=== PATIENT | male | born 1960 | race Caucasian/White ===

== ENCOUNTER 2024-04-17 16:34 | Inpatient (IN) | payer MEDICARE, MEDICAID, SELFPAY ==
[2024-04-17] VITALS (8 sets, daily range): BP systolic 105–154; BP diastolic 66–82; PULSE 80–100; RESP 12–18; TEMP 36–36.8; O2SAT 93–99; BMI 27.1; BMI 30.9; BMI 30.6
--- NOTE | 2024-04-17 17:19 | EX.ED.DYSGE1 ---
HPI <DENISSE Payne - Last Filed: 04/17/24 18:28> History of Present Illness Chief Complaint: Substance Abuse Narrative Narrative: Patient is a 64-year-old male with history of hypertension, hyperlipidemia, atrial fibrillation on Eliquis who presents to the emergency department for detox. Patient states that he snorts fentanyl every morning and every evening. He states that he has been addicted to opiates, narcotics for the last 25 years. He was in a methadone program however stopped in December 2023. Started doing fentanyl again in January. Patient states he takes it because he have severe bilateral hand pain. 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 Patient's sister has it, patient also has hands with muscle wasting as well. He is here for evaluation. [facility] <DENISSE Payne - Last Filed: 04/17/24 18:28> [facility] Medical History (Updated 04/18/24 @ 00:[address] Eliud Lafleur MD) Atrial fibrillation BPH (benign prostatic hyperplasia) Tobacco abuse Gout Peripheral vascular disease Benzodiazepine abuse Heart failure with preserved ejection fraction Mild fentanyl abuse Home Medications ?Medication ?Instructions ?Recorded ?Last Taken ?Type albuterol sulfate 90 mcg/actuation 2 puff inhalation Q6H PRN PRN 04/17/24 Unknown History aerosol inhaler dyspnea apixaban 5 mg tablet (Eliquis) 5 mg PO Q12.TCU 04/17/24 Unknown History atorvastatin 40 mg tablet 40 mg PO DAILY 04/17/24 Unknown History diclofenac sodium 1 % topical gel 2 ea topical 4X/DAY 04/17/24 Unknown History dicyclomine 20 mg tablet 20 mg PO Q6H PRN 04/17/24 Unknown History fluticasone furoate 100 1 ea inhalation BID 04/17/24 Unknown History mcg-vilanterol 25 mcg/dose inhalation powder (Breo Ellipta) furosemide 20 mg tablet 20 mg PO DAILY 04/17/24 Unknown History gabapentin 100 mg capsule 100 mg PO TID 04/17/24 Unknown History metoprolol tartrate 50 mg tablet 50 mg PO BID 04/17/24 Unknown History promethazine 25 mg tablet 25 mg PO Q6H PRN PRN 04/17/24 Unknown History nausea/vomiting quetiapine 100 mg tablet 100 mg PO BID 04/17/24 Unknown History tamsulosin 0.4 mg capsule 0.4 mg PO DAILY 04/17/24 Unknown History Allergy/AdvReac Type Severity Reaction Status Date / Time vancomycin Allergy Intermediate Swelling Verified 04/17/24 16:37 Surgical History Amputated left leg Social History Smoking Status: Current every day smoker tobacco type: cigarettes ROS <DENISSE Payne - Last Filed: 04/17/24 18:28> ROS ED ROS Narrative Constitutional: Negative for fever, chills, weight loss, weakness Eyes: Negative for vision loss, vision change, double vision ENT: Negative for any sore throat, ear pain, congestion Cardiovascular: Negative for any chest pain, tightness, palpitations Respiratory: Negative for any cough, sputum production, hemoptysis, dyspnea, dyspnea on exertion, orthopnea Gastrointestinal: Negative for any abdominal pain, nausea, vomiting, diarrhea, constipation, blood in stool, blood in vomit : Negative for any urinary frequency, dysuria, retention, blood in urine Muscle skeletal: Negative for any neck pain, back pain. Positive for bilateral hand pain Neurological: Negative for any headache, syncope, dizziness Skin: Negative for any rashes, itching, abrasions, lacerations Psychiatric: Negative for any depression, suicidal ideation, homicidal ideation. Positive for anxiety, stress Hematologic: Negative for any excessive bruising, easy bleeding EXAM <DENISSE Payne - Last Filed: 04/17/24 18:28> Physical Exam Narrative Exam Narrative: Vital signs reviewed. HEET: Head normocephalic atraumatic, TMs clear bilaterally. Posterior pharynx is clear, moist mucous membranes. Nares clear bilaterally. Neck: Supple with no lymphadenopathy or tenderness. No signs of meningismus. Cardiac: Regular rate and rhythm no murmurs gallops or rubs, equal peripheral pulses bilaterally. Respiratory: Patient does have some expiratory wheezing. No chest tenderness. Abdomen: Soft, nontender, nondistended. No abdominal bruit or pulsatile masses. No hepatosplenomegaly Extremities: No peripheral edema, no signs of gross trauma or deformity. Active full range of motion of all extremities. Patient's bilateral hands do look to have CMT, there is muscle wasting in between the first and second digit. Neuro: Cranial nerves II through XII intact, no focal neurological deficits. Skin: Clean dry and intact with no rash, purpura, petechiae, vesicles or pustules. Backs/flank: No CVA tenderness, no midline spinal tenderness, no deformity. Psych: Normal mood and affect. No SI, HI or acute psychosis. Const Vital Signs: 04/17/24 16:37 Temperature 96.8 F L Temperature Source Temporal Pulse Rate 100 Respiratory Rate 18 Blood Pressure 154/82 H Blood Pressure Mean 106 Pulse Ox 97 Oxygen Delivery Method Room Air Positive well nourished and well developed General Appearance ED: well developed <Dr. Eliud Lafleur MD - Last Filed: 04/18/24 00:21> Physical Exam Const Vital Signs: 04/17/24 16:37 Temperature 96.8 F L Temperature Source Temporal Pulse Rate 100 Respiratory Rate 18 Blood Pressure 154/82 H Blood Pressure Mean 106 Pulse Ox 97 Oxygen Delivery Method Room Air MDM <DENISSE Payne - Last Filed: 04/17/24 18:28> MDM Lab Data Labs: Laboratory Results - last 24 hr 04/17/24 04/17/24 17:15 18:15 WBC 15.4 H RBC 5.10 Hgb 14.9 Hct 44.6 MCV 87.5 MCH 29.2 MCHC 33.4 RDW Std Deviation 42.5 RDW Coeff of Allyn 13.2 Plt Count 241 MPV 9.6 Immature Gran % (Auto) 0.500 Neut % (Auto) 80.8 H Lymph % (Auto) 14.4 L [place] % (Auto) 4.0 Eos % (Auto) 0.1 Baso % (Auto) 0.2 Absolute Neuts (auto) 12.5 H Absolute Lymphs (auto) 2.23 Nucleated RBC % 0 Sodium 139 Potassium 4.0 Chloride 108 H Carbon Dioxide 25.0 Anion Gap 6 BUN 16 Creatinine 0.91 Estim Creat Clear Calc 102.08 Est GFR (MDRD) Af Amer 108 Est GFR (MDRD) Non-Af 90 BUN/Creatinine Ratio 17.7 Glucose 128 H Calcium 8.5 Urine Opiates Screen NEGATIVE Urine Methadone Screen NEGATIVE Ur Barbiturates Screen NEGATIVE Ur Phencyclidine Scrn NEGATIVE Ur Amphetamines Screen NEGATIVE MDMA (Ecstasy) Screen NEGATIVE U Benzodiazepines Scrn POSITIVE H Urine Cocaine Screen NEGATIVE U Cannabinoids Screen NEGATIVE Ur Drug Screen Comment Ethyl Alcohol < 3.0 Treatment and Re-Evaluation :: Differential diagnosis includes however is not limited to: Fentanyl abuse, Charcot Lenore tooth syndrome, anxiety, depression, chronic pain, withdrawal Patient appears generally well, vital signs are stable, patient is nontoxic-appearing. Presenting to the emergency department for the 1 of detox from fentanyl, he is also concerned because he has chronic pain to both hands and wants to see a specialist. Patient will receive the basic laboratory values needed for admission. Patient CBC shows slight leukocytosis with white blood count of 15.4, chemistries were unremarkable, glucose 128, alcohol was negative. I did reach out to hospitalist, they will admit the patient. Patient stable. <Dr. Eliud Lafleur MD - Last Filed: 04/18/24 00:21> [facility] MDM Narrative Medical decision making narrative: I have personally performed a face to face assessment of the patient and have reviewed the DEEPALI Note. I performed a substantive portion of the visit including all aspects of the following. My harkins findings include: History is patient states he is here wanting detox from fentanyl. He has chronic pain in both of his hands that he states started in an ulnar nerve distribution bilaterally and now is throughout his palms, including throughout the MCPJ and PIPJ's all digits, hurts more to move. Family history of CMT unknown if he has it or not. The pain has been for years. He used to be in a methadone clinic for this pain, but in this summer he decided to leave it and then was dependent on fentanyl to keep his pain controlled, according to the patient. He sometimes has withdrawal, his last use was yesterday and he does not have any withdrawal symptoms today yet. Exam is well-appearing NAD. Full range of motion throughout both hands which are normal-appearing on the skin. There is no focal swelling or erythema to any particular joint. He is neurovascularly intact distally. He status post left AKA. He has a prosthesis. Medical Decison Making discussed thoroughly with patient that if he goes through detox without having a plan for his pain afterwards, he is at risk for relapse. He wants his hand issues addressed as well. As I discussed we are happy to admit him for detox, we discussed with the hospitalist the issues he is having, and we told the patient that they may consult neurology which is a telemedicine encounter here, and we cannot make him guarantees about solving his hand issues during this admission. He understands and still desires admission. Other additions or changes: [None] Lab Data Labs: Laboratory Results - last 24 hr 04/17/24 04/17/24 17:15 18:15 WBC 15.4 H RBC 5.10 Hgb 14.9 Hct 44.6 MCV 87.5 MCH 29.2 MCHC 33.4 RDW Std Deviation 42.5 RDW Coeff of Allyn 13.2 Plt Count 241 MPV 9.6 Immature Gran % (Auto) 0.500 Neut % (Auto) 80.8 H Lymph % (Auto) 14.4 L [place] % (Auto) 4.0 Eos % (Auto) 0.1 Baso % (Auto) 0.2 Absolute Neuts (auto) 12.5 H Absolute Lymphs (auto) 2.23 Nucleated RBC % 0 Sodium 139 Potassium 4.0 Chloride 108 H Carbon Dioxide 25.0 Anion Gap 6 BUN 16 Creatinine 0.91 Estim Creat Clear Calc 102.08 Est GFR (MDRD) Af Amer 108 Est GFR (MDRD) Non-Af 90 BUN/Creatinine Ratio 17.7 Glucose 128 H Calcium 8.5 Urine Opiates Screen NEGATIVE Urine Methadone Screen NEGATIVE Ur Barbiturates Screen NEGATIVE Ur Phencyclidine Scrn NEGATIVE Ur Amphetamines Screen NEGATIVE MDMA (Ecstasy) Screen NEGATIVE U Benzodiazepines Scrn POSITIVE H Urine Cocaine Screen NEGATIVE U Cannabinoids Screen NEGATIVE Ur Drug Screen Comment Ethyl Alcohol < 3.0 Discharge Plan Dx/Rx/DC Orders Clinical Impression: Opioid dependence with current use, Mild fentanyl abuse, Desire for detoxification, Bilateral hand pain, Chronic pain Disposition Disposition: Acute Care Hospital [facility] Discharge Date/Time: 04/17/24 18:43
[2024-04-17 17:22] LABS: Absolute Lymphocyte Count 2.23 X10^3/uL (0.83-4.51); Absolute Neutrophil Count 12.5 X10^3/uL (2.0-7.7); Basophil# 0.03 X10^3/uL; Basophil% 0.2 % (0-1); Eosinophil# 0.02 X10^3/uL; Eosinophils% 0.1 % (0-5); Hematocrit 44.6 % (40-54); Hemoglobin 14.9 g/dL (13.0-16.5); Lymphocyte # 2.23 X10^3/ul (0.83-4.51); Lymphocyte % 14.4 % (19-41); Mean Corp Hgb Conc 33.4 g/dL (32-36); Mean Corpuscular Hgb 29.2 pg (27.0-32.0); Mean Corpuscular Volume 87.5 fL (80-94); Mean Platelet Vol. 9.6 fl (6.2-12.0); Monocyte# 0.61 X10^3/uL; NRBC Flagged by Analyzer 0 % (0-5); Neutrophil # 12.47 X10^3/uL (2.7-7.7); Neutrophil % 80.8 % (47-70); Platelet Count 241 K/mm3 (150-450); RBC Distribution Width CV 13.2 % (11.6-14.6); RBC Distribution Width SD 42.5 fl (35.1-43.9); White Blood Count 15.4 K/mm3 (4.4-11.0)
[2024-04-17 17:35] LABS: Anion Gap 6 (5-15); BUN 16 mg/dL (7-18); BUN/Creat Ratio 17.7 RATIO (10-20); Calcium,Total 8.5 mg/dL (8.5-10.1); Chloride 108 mmol/L (98-107); Creatinine, Serum 0.91 mg/dL (0.70-1.30); EST Glomerular Filtration Rate 90 mL/min (>60); Est Glom Filt Rate - Afr Amer 108 mL/min (>60); Estimated Creatinine Clearance 102.08 ml/min; Glucose 128 mg/dL (74-106); Sodium Level 139 mmol/L (136-145)
[2024-04-17 17:44] LABS: Alcohol, Blood (Medical)-Serum < 3.0 mg/dL
--- NOTE | 2024-04-17 18:33 | PCM.HP.STD ---
HPI - General General Date of Admission: 04/17/24 Date of Service: 04/17/24 Chief Complaint: Fentanyl detox HPI Narrative BRAYAN GALLAGHER, is a 64 M with a history of peripheral vascular disease status post left lower extremity amputation due to infection, gout, COPD, anxiety, chronic heart failure with preserved ejection fraction, atrial fibrillation, BPH who presented [facility] ED 04/17/2024 requesting detox from fentanyl. In ED patient with white blood cell count of 15.4 however lab workup otherwise unremarkable and patient vitally stable. Only focal complaint was pain in his hands which is not new. Hospitalist contacted for admission. Patient evaluated at bedside. Patient has used narcotics for many years, had been in the methadone clinic for period of time however he was pulled over when driving and was in [place] [facility] and when he was released to the methadone clinic wanted him to go back to daily and that weekly visits so he left the clinic. Since January he has been snorting fentanyl in the morning and at night with last use yesterday. Has not began to withdraw but said he anticipates he will start by tomorrow. Additionally patient uses tobacco and smokes about a pack per day. He also occasionally uses Xanax, somewhat elusive when trying to get the details of this but after a lot of questioning seems that he possibly uses roughly 1 g every other day and unclear when his last dose was. He said he can usually tell if he is withdrawing from it and does not presently feel he is withdrawing but if he is going to he would likely know tomorrow. Has main complaint of bilateral hand pain which is not new and has been dealing with this on an outpatient basis, aside from his pain ROS otherwise negative. Of note we have no records of his so past medical history obtained via patient and [employer] [employer] and his sister brought his bag of medicine and so that his medicine list could be updated. [facility] Medical History (Updated 04/17/24 @ 18:[address] Liz Corona MD) Atrial fibrillation Benzodiazepine abuse BPH (benign prostatic hyperplasia) Gout Heart failure with preserved ejection fraction Mild fentanyl abuse Peripheral vascular disease Tobacco abuse Home Medications ?Medication ?Instructions ?Recorded ?Last Taken ?Type albuterol sulfate 90 mcg/actuation 2 puff inhalation Q6H PRN PRN 04/17/24 Unknown History aerosol inhaler dyspnea apixaban 5 mg tablet (Eliquis) 5 mg PO Q12.TCU 04/17/24 Unknown History atorvastatin 40 mg tablet 40 mg PO DAILY 04/17/24 Unknown History diclofenac sodium 1 % topical gel 2 ea topical 4X/DAY 04/17/24 Unknown History dicyclomine 20 mg tablet 20 mg PO Q6H PRN 04/17/24 Unknown History fluticasone furoate 100 1 ea inhalation BID 04/17/24 Unknown History mcg-vilanterol 25 mcg/dose inhalation powder (Breo Ellipta) furosemide 20 mg tablet 20 mg PO DAILY 04/17/24 Unknown History gabapentin 100 mg capsule 100 mg PO TID 04/17/24 Unknown History metoprolol tartrate 50 mg tablet 50 mg PO BID 04/17/24 Unknown History promethazine 25 mg tablet 25 mg PO Q6H PRN PRN 04/17/24 Unknown History nausea/vomiting quetiapine 100 mg tablet 100 mg PO BID 04/17/24 Unknown History tamsulosin 0.4 mg capsule 0.4 mg PO DAILY 04/17/24 Unknown History Allergy/AdvReac Type Severity Reaction Status Date / Time vancomycin Allergy Intermediate Swelling Verified 04/17/24 16:37 Surgical History (Updated 04/17/24 @ 18:[address] Lzi Corona MD) Amputated left leg Social History Smoking Status: Current every day smoker tobacco type: cigarettes ROS ROS Narrative General: Denies fever/chills HENT: Denies headache, denies stuffy nose, denies sore throat EYES: Denies changes in vision Resp: Denies cough, denies shortness of breath Cardiac: Denies chest pain GI: Denies abdominal pain, denies changes in bowel, denies nausea/vomiting : Denies changes in urination Extremity: Denies swelling MSK: Pain in bilateral hands Neuro: Denies any numbness/tingling Heme: Denies any bleeding or bruising Skin: Denies rashes Psychiatric: No complaints voiced Vital Signs Vital Signs Vital Signs: 04/17/24 16:37 Temperature 96.8 F L Temperature Source Temporal Pulse Rate 100 Respiratory Rate 18 Blood Pressure 154/82 H Blood Pressure Mean 106 Pulse Ox 97 Oxygen Delivery Method Room Air Weight Weight: 103.6 kg Body Mass Index (BMI) 30.9 Physical Exam Narrative General: Alert, oriented, no apparent distress HEENT: Atraumatic, normocephalic Eyes: Anicteric, normal conjunctiva, extraocular movements grossly intact Neck: Supple Respiratory: Clear to auscultation bilaterally, normal respiratory effort Cardiovascular: Regular rate GI: Soft, nontender, nondistended Extremities: Left BKA noted and patient with prosthetic in place, no swelling appreciated on right Musculoskeletal: Moving all extremities, does have left BKA noted Neuro: No overt focal neurological deficits Skin: No rashes appreciated Psych: Overall cooperative but somewhat evasive with questioning Results Lab / Micro Data 04/17/24 17:15 04/17/24 17:15 Labs: Laboratory Results - last 24 hr 04/17/24 17:15: WBC 15.4 H, RBC 5.10, Hgb 14.9, Hct 44.6, MCV 87.5, MCH 29.2, MCHC 33.4, RDW Std Deviation 42.5, RDW Coeff of Allyn 13.2, Plt Count 241, MPV 9.6, Immature Gran % (Auto) 0.500, Neut % (Auto) 80.8 H, Lymph % (Auto) 14.4 L, [place] % (Auto) 4.0, Eos % (Auto) 0.1, Baso % (Auto) 0.2, Absolute Neuts (auto) 12.5 H, Absolute Lymphs (auto) 2.23, Nucleated RBC % 0, Sodium 139, Potassium 4.0, Chloride 108 H, Carbon Dioxide 25.0, Anion Gap 6, BUN 16, Creatinine 0.91, Estim Creat Clear Calc 102.08, Est GFR (MDRD) Af Amer 108, Est GFR (MDRD) Non-Af 90, BUN/Creatinine Ratio 17.7, Glucose 128 H, Calcium 8.5, Ethyl Alcohol < 3.0 04/17/24 18:15: Ur Drug Screen Comment Assessment & Plan Assessment/Plan (1) Mild fentanyl abuse: (2) Desire for detoxification: (3) Benzodiazepine abuse: PLAN: Plan #Acute opiate withdrawal - Subutex taper initiated - As needed Tylenol, ibuprofen, bowel regimen, Bentyl, Vistaril, methocarbamol, clonidine - As needed trazodone nightly - As needed antiemetics -Once patient begins to clinically improve will discuss further discharge planning # Benzodiazepine use disorder -Patient estimates he uses a milligram every other day but very vague and last use unclear, he reports he knows if he is withdrawing from it and he is not presently and does not necessarily think that he will -CIWA with Ativan coverage #Bilateral hand pain -Schedule tylenol -Patient to be on Subutex taper so we will not order opioids -Given heart history, on eliquis, and vascular stenting patient not an ideal candidate for NSAIDs -Can try topical arthritis pain compound as needed -Will need to continue to follow-up outpatient for further management of his chronic pain -Will increase patient's scheduled gabapentin as well # Leukocytosis -Patient has no focal or acute signs and symptoms of acute infectious etiology -Vitally stable -Repeat in the a.m. -Would hold off on empiric antibiotics unless infectious source identified or active infection highly suspected #atrial fibrillation -Continue home metoprolol and Eliquis # Chronic heart failure with preserved ejection fraction -Seen on problem list in clin[facility] -Daily weights, I's and O's -Continue patient's home Lasix # Peripheral vascular disease with stenting and left lower extremity amputation -Patient reports he got an infection in his left lower extremity previously that ultimately required amputation, is also had peripheral vascular intervention per patient -Continue Eliquis and atorvastatin # Chronic COPD -Continue home inhalers #Chronic BPH with obstruction -Continue home medications #Gout -Does not appear to be taking any chronic medications at this time #Tobacco use -Advise cessation -Nicotine patch ordered #DVT ppx: On Eliquis Liz Corona MD Time spent in the patient's overall evaluation,decision-making process, review of diagnostic data, adjustment of management, discussion with other providers, nursing nursing and ancillary staff involved in patient's care documentation, 56 Minutes Charges/Coding Visit Charges Inpatient E&M: 24969 Init Hosp L2
[2024-04-17 18:49] LABS: Amphetamine Urine VISTA NEGATIVE (<1000 ng/mL); Barbiturate Urine VISTA NEGATIVE (< 200 ng/mL); Benzodiazepine Urine VISTA POSITIVE (< 200 ng/mL); Cocaine Urine VISTA NEGATIVE (< 300 ng/mL); Ecstacy Urine VISTA NEGATIVE (< 500 ng/mL); Methadone Urine VISTA NEGATIVE (< 300 ng/mL); PCP Urine VISTA NEGATIVE (< 25 ng/mL); THC Urine VISTA NEGATIVE (< 50 ng/mL); Vista UDS pH Range 5
[2024-04-17] MEDS: Albuterol 2.5 MG/3 ML VIAL.NEB. INHALATION (20:55)
[2024-04-17] MEDS: Budesonide Respules 0.5 MG/2 ML AMPUL.NEB. INHALATION (20:55)
[2024-04-17] MEDS: Gabapentin 100 MG Capsule 200 MG PO (21:13)
[2024-04-17] MEDS: Acetaminophen 500 MG Tablet 1000 MG PO (21:13)
[2024-04-17] MEDS: QUEtiapine 100 MG Tablet PO (21:14)
[2024-04-17] MEDS: APIXABAN 5 MG TABLET PO (21:14)
[2024-04-17] MEDS: Arthritis Pain Compound 60 CLICK TUBE TOPICAL (21:19)
[2024-04-17] MEDS: Metoprolol Tartrate 50 MG Tablet PO (22:25)
[2024-04-17] MEDS: Methocarbamol 750 MG Tablet PO (22:30)
[2024-04-18] VITALS (8 sets, daily range): BP systolic 94–129; BP diastolic 57–63; PULSE 62–98; RESP 16–18; TEMP 36.4–36.7; O2SAT 96–99; BMI 30.6
[2024-04-18] MEDS: Gabapentin 100 MG Capsule 200 MG PO ×2 (05:12→13:08)
[2024-04-18] MEDS: Acetaminophen 500 MG Tablet 1000 MG PO ×3 (05:12→21:13)
[2024-04-18 06:43] LABS: Absolute Lymphocyte Count 3.11 X10^3/uL (0.83-4.51); Absolute Neutrophil Count 6.6 X10^3/uL (2.0-7.7); Basophil# 0.01 X10^3/uL; Basophil% 0.1 % (0-1); Eosinophil# 0.06 X10^3/uL; Eosinophils% 0.6 % (0-5); Lymphocyte # 3.11 X10^3/ul (0.83-4.51); Mean Corp Hgb Conc 32.5 g/dL (32-36); Mean Corpuscular Hgb 28.8 pg (27.0-32.0); Mean Corpuscular Volume 88.5 fL (80-94); Mean Platelet Vol. 9.7 fl (6.2-12.0); Monocyte# 0.55 X10^3/uL; Monocyte% 5.3 % (0-10); NRBC Flagged by Analyzer 0 % (0-5); Neutrophil # 6.58 X10^3/uL (2.7-7.7); Neutrophil % 63.5 % (47-70); Platelet Count 188 K/mm3 (150-450); RBC Distribution Width CV 13.6 % (11.6-14.6); RBC Distribution Width SD 43.6 fl (35.1-43.9); Red Blood Count 4.52 M/mm3 (4.6-6.2); White Blood Count 10.4 K/mm3 (4.4-11.0)
[2024-04-18 07:27] LABS: AST(SGOT) 4 U/L (15-37); Alanine Aminotransfer ALT/SGPT 14 U/L (16-61); Albumin, Serum 2.9 g/dL (3.2-5.0); Alkaline Phosphatase 81 U/L (45-117); Anion Gap 7 (5-15); BUN 14 mg/dL (7-18); BUN/Creat Ratio 17.7 RATIO (10-20); Calcium,Total 7.7 mg/dL (8.5-10.1); Chloride 111 mmol/L (98-107); Creatinine, Serum 0.79 mg/dL (0.70-1.30); EST Glomerular Filtration Rate 105 mL/min (>60); Est Glom Filt Rate - Afr Amer 127 mL/min (>60); Estimated Creatinine Clearance 116.99 ml/min; Globulin 2.9 g/dL (2.2-4.2); Glucose 108 mg/dL (74-106); Magnesium 2.4 mg/dL (1.6-2.6); Potassium 3.6 mmol/L (3.5-5.1); Protein, Total 5.8 g/dL (6.4-8.2); Sodium Level 145 mmol/L (136-145)
[2024-04-18] MEDS: Albuterol 2.5 MG/3 ML VIAL.NEB. INHALATION ×2 (08:00→13:49)
[2024-04-18] MEDS: Budesonide Respules 0.5 MG/2 ML AMPUL.NEB. INHALATION (08:00)
[2024-04-18] MEDS: Methocarbamol 750 MG Tablet PO ×2 (08:41→21:24)
[2024-04-18] MEDS: Arthritis Pain Compound 60 CLICK TUBE TOPICAL (08:41)
[2024-04-18] MEDS: Tamsulosin HCl 0.4 MG Capsule PO (08:43)
[2024-04-18] MEDS: Furosemide 20 MG Tablet PO (08:43)
[2024-04-18] MEDS: Metoprolol Tartrate 50 MG Tablet PO ×2 (08:43→21:13)
[2024-04-18] MEDS: Atorvastatin Calcium 40 MG Tablet PO (08:43)
[2024-04-18] MEDS: APIXABAN 5 MG TABLET PO ×2 (08:43→21:13)
[2024-04-18] MEDS: Buprenorphine HCl 2 MG TAB.SUBL SL ×2 (11:52→19:02)
--- NOTE | 2024-04-18 17:42 | PCM.PN.HOSP ---
Reason for Visit Reason for Visit: Diagnoses Opioid abuse, uncomplicated (04/17/24) Sedative, hypnotic or anxiolytic abuse, uncomplicated (04/17/24) Subjective Subjective Patient was seen and examined today, he does not complain of any muscle pain, nausea, or vomiting. Patient does complain of neuropathic pain in his hands which she has had for many weeks, etiology of this is unknown, I told him I would place him on gabapentin to see if this would help. He has not yet seen a physician for a workup for this discomfort. Objective Data Objective Data Vital Signs: Vital Signs Temp Pulse Resp BP Pulse Ox O2 Del Method 97.5 F L 84 18 98/57 L 96 Room Air 04/18/24 16:47 04/18/24 16:47 04/18/24 16:47 04/18/24 16:47 04/18/24 16:47 04/18/24 16:47 Oxygen Delivery Method Room Air Weight: 102.5 kg Body Mass Index (BMI) 30.6 Intake & Output: Intake and Output for Last 24 Hours 04/16/24 04/17/24 04/18/24 23:59 23:59 23:59 Intake Total 900 / 900 900 / 900 Output Total 1750 / 1750 Balance 900 / 900 -850 / -850 Lab / Micro Data 04/18/24 06:22 04/18/24 06:22 Labs: Laboratory Results - last 24 hr 04/17/24 17:15: Ethyl Alcohol < 3.0 04/17/24 18:15: Urine Opiates Screen NEGATIVE, Urine Methadone Screen NEGATIVE, Ur Barbiturates Screen NEGATIVE, Ur Phencyclidine Scrn NEGATIVE, Ur Amphetamines Screen NEGATIVE, MDMA (Ecstasy) Screen NEGATIVE, U Benzodiazepines Scrn POSITIVE H, Urine Cocaine Screen NEGATIVE, U Cannabinoids Screen NEGATIVE, Ur Drug Screen Comment 04/18/24 06:22: WBC 10.4, RBC 4.52 L, Hgb 13.0, Hct 40.0, MCV 88.5, MCH 28.8, MCHC 32.5, RDW Std Deviation 43.6, RDW Coeff of Allyn 13.6, Plt Count 188, MPV 9.7, Immature Gran % (Auto) 0.500, Neut % (Auto) 63.5, Lymph % (Auto) 30.0, [place] % (Auto) 5.3, Eos % (Auto) 0.6, Baso % (Auto) 0.1, Absolute Neuts (auto) 6.6, Absolute Lymphs (auto) 3.11, Nucleated RBC % 0, Sodium 145, Potassium 3.6, Chloride 111 H, Carbon Dioxide 27.0, Anion Gap 7, BUN 14, Creatinine 0.79, Estim Creat Clear Calc 116.99, Est GFR (MDRD) Af Amer 127, Est GFR (MDRD) Non-Af 105, BUN/Creatinine Ratio 17.7, Glucose 108 H, Calcium 7.7 L, Magnesium 2.4, Total Bilirubin 0.30, AST 4 L, ALT 14 L, Alkaline Phosphatase 81, Total Protein 5.8 L, Albumin 2.9 L, Globulin 2.9, Albumin/Globulin Ratio 1.0 Physical Exam Const alert, oriented x3, no apparent distress and healthy appearing General Appearance: cooperative, well kempt and well developed Orientation / Consciousness: awake, oriented to person, oriented to place and oriented to time HEENT normocephalic and moist oral mucous membranes Eyes PERRL, EOMs intact bilaterally and conjunctivae normal Neck supple, no JVD and thyroid normal General: trachea midline Resp normal respiratory effort, no retractions, no use of accessory muscles and clear to auscultation bilaterally Auscultation: Negative for rales, rhonchi or wheezes Cardio regular rate, regular rhythm, S1 normal heart sound, S2 normal heart sound, no murmurs, no rub and no gallops GI normal to inspection, nondistended, normoactive bowel sounds, soft to palpation, non-tender and non-distended Extremity no clubbing, cyanosis or edema Skin no rashes or lesions noted General Skin Exam: no breakdown Neuro oriented x3, CN's II-XII intact bilaterally, moves all extremities, no focal motor deficits and no sensory deficits noted Sensorium / Orientation: awake and alert Speech: speech normal Psych affect normal Assessment & Plan Assessment/Plan (1) Bilateral hand pain: PLAN: Plan 1. Substance use disorder with fentanyl, currently undergoing withdrawal syndrome-continue Subutex, patient will be seen by addiction social insurance administrator #2 neuropathic hand pain-etiology unclear, patient will be placed on higher doses of gabapentin in an attempt to alleviate his discomfort, patient will need to continue workup as an outpatient #3 hyperlipidemia-patient is on atorvastatin #4 paroxysmal atrial fibrillation-patient is on Eliquis Total clinical time spent by myself addressing the patient's medical issues, reviewing all of his data, and collaborating with patient's care team: 35 minutes Charges/Coding Visit Charges Inpatient E&M: 19660 Subs Hosp L2
--- NOTE | 2024-04-18 18:23 | NURSING ---
Call received from sister Ebony. Updated on status/emotional well-being of pt.
[2024-04-18] MEDS: Gabapentin 400 MG Capsule PO (21:13)
[2024-04-18] MEDS: QUEtiapine 100 MG Tablet PO (21:14)
[2024-04-19] VITALS (8 sets, daily range): BP systolic 98–115; BP diastolic 60–84; PULSE 71–86; RESP 16–18; TEMP 36.7–36.9; O2SAT 95–98; BMI 29.2
[2024-04-19] MEDS: Buprenorphine HCl 2 MG TAB.SUBL SL ×3 (03:23→18:09)
[2024-04-19] MEDS: Acetaminophen 500 MG Tablet 1000 MG PO ×3 (06:25→21:58)
[2024-04-19] MEDS: Gabapentin 400 MG Capsule PO ×3 (06:26→21:58)
[2024-04-19] MEDS: Budesonide Respules 0.5 MG/2 ML AMPUL.NEB. INHALATION (07:36)
[2024-04-19] MEDS: Albuterol 2.5 MG/3 ML VIAL.NEB. INHALATION ×2 (07:36→13:34)
[2024-04-19] MEDS: Metoprolol Tartrate 50 MG Tablet PO ×2 (10:04→21:58)
[2024-04-19] MEDS: APIXABAN 5 MG TABLET PO ×2 (10:05→21:58)
[2024-04-19] MEDS: Atorvastatin Calcium 40 MG Tablet PO (10:05)
[2024-04-19] MEDS: Furosemide 20 MG Tablet PO (10:05)
[2024-04-19] MEDS: Tamsulosin HCl 0.4 MG Capsule PO (10:05)
--- NOTE | 2024-04-19 10:50 | ADDICTION ---
Met with pt to complete RAMP assessments. Pt reports that he began abusing fentanyl and other pain medications. Pt reports that he was on Methadone for a couple of years but detoxed in long term. Pt reports he has court on and cannot commit to any treatment recommendations at this time. Clinician gave him a list of resources in his area.
[2024-04-19] MEDS: Methocarbamol 750 MG Tablet PO ×2 (13:57→20:21)
--- NOTE | 2024-04-19 14:48 | PN.HOSP_ITS ---
Reason for Visit Reason for Visit: Diagnoses Opioid abuse, uncomplicated (04/17/24) Sedative, hypnotic or anxiolytic abuse, uncomplicated (04/17/24) Pain in right hand (04/17/24) Pain in left hand (04/17/24) Subjective Subjective Patient was seen and examined today, he was started on Subutex. Patient has no complaints of any anxiety or tremor at this time. I talked with addiction social services specialist about his care. He is still complaining of neuropathy pain in his hands, at this time he does not want his gabapentin increased however. Objective Data Objective Data Vital Signs: Vital Signs Temp Pulse Resp BP Pulse Ox O2 Del Method 98.2 F 80 18 107/64 98 Room Air 04/19/24 13:51 04/19/24 13:51 04/19/24 13:51 04/19/24 13:51 04/19/24 13:51 04/19/24 13:58 Oxygen Delivery Method Room Air Weight: 97.7 kg Body Mass Index (BMI) 29.2 Intake & Output: Intake and Output for Last 24 Hours 04/17/24 04/18/24 04/19/24 23:59 23:59 23:59 Intake Total 900 / 900 1800 / 1800 1800 / 1800 Output Total 2650 / 2650 1050 / 1050 Balance 900 / 900 -850 / -850 750 / 750 Lab / Micro Data 04/18/24 06:22 04/18/24 06:22 Physical Exam Narrative alert, oriented x3, no apparent distress and healthy appearing General Appearance: cooperative, well kempt and well developed Orientation / Consciousness: awake, oriented to person, oriented to place and oriented to time HEENT normocephalic and moist oral mucous membranes Eyes PERRL, EOMs intact bilaterally and conjunctivae normal Neck supple, no JVD and thyroid normal General: trachea midline Resp normal respiratory effort, no retractions, no use of accessory muscles and clear to auscultation bilaterally Auscultation: Negative for rales, rhonchi or wheezes Cardio regular rate, regular rhythm, S1 normal heart sound, S2 normal heart sound, no murmurs, no rub and no gallops GI normal to inspection, nondistended, normoactive bowel sounds, soft to palpation, non-tender and non-distended Extremity no clubbing, cyanosis or edema Skin no rashes or lesions noted General Skin Exam: no breakdown Neuro oriented x3, CN's II-XII intact bilaterally, moves all extremities, no focal motor deficits and no sensory deficits noted Sensorium / Orientation: awake and alert Speech: speech normal Psych affect normal Assessment & Plan Assessment/Plan (1) Opioid dependence with current use: (2) Bilateral hand pain: PLAN: Plan 1. Substance use disorder with fentanyl, currently undergoing withdrawal syndrome-continue Subutex, addiction social services specialist has talked to the patient about outpatient follow-up #2 neuropathic hand pain-etiology unclear, patient will continue on gabapentin 3 times daily, he will need follow-up as an outpatient #3 hyperlipidemia-patient is on atorvastatin #4 paroxysmal atrial fibrillation-patient is on Eliquis Total clinical time spent by myself addressing the patient's medical issues, reviewing all of his data, and collaborating with patient's care team: 35 minutes Charges/Coding Visit Charges Inpatient E&M: 11756 Subs Hosp L2
[2024-04-19] MEDS: cloNIDine HCl 0.1 MG Tablet PO (20:21)
[2024-04-19] MEDS: Arthritis Pain Compound 60 CLICK TUBE TOPICAL (20:21)
[2024-04-19] MEDS: QUEtiapine 100 MG Tablet PO (21:59)
[2024-04-20] VITALS (9 sets, daily range): BP systolic 99–121; BP diastolic 61–74; PULSE 74–91; RESP 16–18; TEMP 36.4–37; O2SAT 93–97
[2024-04-20] MEDS: Buprenorphine HCl 2 MG TAB.SUBL SL ×3 (02:28→22:20)
[2024-04-20] MEDS: Acetaminophen 500 MG Tablet 1000 MG PO ×3 (06:16→21:29)
[2024-04-20] MEDS: Gabapentin 400 MG Capsule PO ×2 (06:17→14:42)
[2024-04-20] MEDS: Budesonide Respules 0.5 MG/2 ML AMPUL.NEB. INHALATION ×2 (07:23→19:45)
[2024-04-20] MEDS: Albuterol 2.5 MG/3 ML VIAL.NEB. INHALATION ×3 (07:23→19:45)
[2024-04-20] MEDS: Metoprolol Tartrate 50 MG Tablet PO ×2 (09:59→21:29)
[2024-04-20] MEDS: Furosemide 20 MG Tablet PO (09:59)
[2024-04-20] MEDS: APIXABAN 5 MG TABLET PO ×2 (09:59→21:29)
[2024-04-20] MEDS: Tamsulosin HCl 0.4 MG Capsule PO (09:59)
[2024-04-20] MEDS: Atorvastatin Calcium 40 MG Tablet PO (09:59)
[2024-04-20] MEDS: Arthritis Pain Compound 60 CLICK TUBE TOPICAL (10:00)
[2024-04-20] MEDS: hydrOXYzine PAM 25 MG Capsule 50 MG PO (14:42)
[2024-04-20] MEDS: Methocarbamol 750 MG Tablet PO ×2 (14:42→21:29)
[2024-04-20] MEDS: Gabapentin 100 MG Capsule 200 MG PO (15:12)
--- NOTE | 2024-04-20 15:48 | PN.HOSP_ITS ---
Reason for Visit Reason for Visit: Diagnoses Opioid abuse, uncomplicated (04/17/24) Opioid dependence, uncomplicated (04/17/24) Sedative, hypnotic or anxiolytic abuse, uncomplicated (04/17/24) Pain in right hand (04/17/24) Pain in left hand (04/17/24) Subjective Subjective Patient was seen and examined today, he still complains of pain in his hands, I offered to increase his gabapentin and he has agreed. Objective Data Objective Data Vital Signs: Vital Signs Temp Pulse Resp BP Pulse Ox O2 Del Method 97.6 F L 86 18 121/71 H 96 Room Air 04/20/24 14:37 04/20/24 14:37 04/20/24 14:37 04/20/24 14:37 04/20/24 14:37 04/20/24 14:37 Oxygen Delivery Method Room Air Weight: 97.7 kg Body Mass Index (BMI) 29.2 Intake & Output: Intake and Output for Last 24 Hours 04/18/24 04/19/24 04/20/24 23:59 23:59 23:59 Intake Total 1800 / 1800 2200 / 2200 300 / 300 Output Total 2650 / 2650 1350 / 1350 Balance -850 / -850 850 / 850 300 / 300 Lab / Micro Data 04/18/24 06:22 04/18/24 06:22 Physical Exam Narrative alert, oriented x3, no apparent distress and healthy appearing General Appearance: cooperative, well kempt and well developed Orientation / Consciousness: awake, oriented to person, oriented to place and oriented to time HEENT normocephalic and moist oral mucous membranes Eyes PERRL, EOMs intact bilaterally and conjunctivae normal Neck supple, no JVD and thyroid normal General: trachea midline Resp normal respiratory effort, no retractions, no use of accessory muscles and clear to auscultation bilaterally Auscultation: Negative for rales, rhonchi or wheezes Cardio regular rate, regular rhythm, S1 normal heart sound, S2 normal heart sound, no murmurs, no rub and no gallops GI normal to inspection, nondistended, normoactive bowel sounds, soft to palpation, non-tender and non-distended Extremity no clubbing, cyanosis or edema Skin no rashes or lesions noted General Skin Exam: no breakdown Neuro oriented x3, CN's II-XII intact bilaterally, moves all extremities, no focal motor deficits and no sensory deficits noted Sensorium / Orientation: awake and alert Speech: speech normal Psych affect normal Assessment & Plan Assessment/Plan (1) Opioid dependence with current use: (2) Bilateral hand pain: PLAN: Plan 1. Substance use disorder with fentanyl, currently undergoing withdrawal syndrome-continue Subutex, addiction manager social responsibility has talked to the patient about outpatient follow-up #2 neuropathic hand pain-etiology unclear, patient will continue on gabapentin 3 times daily, he will need follow-up as an outpatient, I have elected to increase his gabapentin. #3 hyperlipidemia-patient is on atorvastatin #4 paroxysmal atrial fibrillation-patient is on Eliquis Total clinical time spent by myself addressing the patient's medical issues, reviewing all of his data, and collaborating with patient's care team: 35 minutes Charges/Coding Visit Charges Inpatient E&M: 40684 Subs Hosp L2
[2024-04-20] MEDS: QUEtiapine 100 MG Tablet PO (21:29)
[2024-04-20] MEDS: Gabapentin 600 MG Tablet PO (21:30)
[2024-04-21 05:11] VITALS: BP 108/83; PULSE 73; RESP 18; TEMP 36.6; O2SAT 95
[2024-04-21] MEDS: Gabapentin 600 MG Tablet PO ×2 (05:15→13:56)
[2024-04-21] MEDS: Acetaminophen 500 MG Tablet 1000 MG PO ×2 (05:15→13:56)
[2024-04-21 06:00] VITALS: BMI 29.6
[2024-04-21 07:39] VITALS: PULSE 77; RESP 18
[2024-04-21] MEDS: Budesonide Respules 0.5 MG/2 ML AMPUL.NEB. INHALATION (07:39)
[2024-04-21] MEDS: Albuterol 2.5 MG/3 ML VIAL.NEB. INHALATION (07:39)
--- NOTE | 2024-04-21 09:12 | PCM.DC ---
Discharge Instructions Diet Discharge Diet: No restrictions Activity Discharge Activity: Return to Normal Activity Weight Bearing Status: Full weight bearing Follow Up Care Test Results: Test results from this visit will be discussed in further detail at your follow-up appointment, if applicable. Discharge Plan Admission Admit Date/Time: 04/17/24 18:33 Primary Reason for Your Visit: Substance use disorder with fentanyl, neuropathy Attending Provider: Nikolai Boyd Primary Care Provider: Abena Molina Consulting Providers: Liz Corona Instructions Additional Instructions / Restrictions: Follow-up with outpatient detox services Discharge Orders/Prescriptions Prescriptions: New gabapentin 600 mg Tablet 600 mg PO TID Qty: 90 1RF Continued atorvastatin 40 mg tablet 40 mg PO DAILY albuterol sulfate 90 mcg/actuation HFA aerosol inhaler 2 puff inhalation Q6H PRN PRN (Reason: dyspnea) Eliquis 5 mg tablet 5 mg PO Q12.TCU tamsulosin 0.4 mg capsule 0.4 mg PO DAILY dicyclomine 20 mg tablet 20 mg PO Q6H PRN metoprolol tartrate 50 mg tablet 50 mg PO BID furosemide 20 mg tablet 20 mg PO DAILY fluticasone furoate-vilanterol [Breo Ellipta] 100-25 mcg/dose blister with device 1 ea inhalation BID quetiapine 100 mg tablet 100 mg PO BID promethazine 25 mg tablet 25 mg PO Q6H PRN PRN (Reason: nausea/vomiting) diclofenac sodium 1 % gel 2 ea topical 4X/DAY Discontinued gabapentin 100 mg capsule 100 mg PO TID Referrals / Follow Up: NOT,DEFINED [Non-Staff] - Abena Molina, GROUP MANAGER-C [Primary Care Provider] - Disposition Disposition (needs filled in before D/C Order can be placed): Home, Self Care
[2024-04-21 09:57] VITALS: BP 103/58; PULSE 100; RESP 18; TEMP 37.1; O2SAT 95
[2024-04-21 10:00] VITALS: PULSE 101
[2024-04-21 10:14] VITALS: BP 103/58; PULSE 101
[2024-04-21] MEDS: Atorvastatin Calcium 40 MG Tablet PO (10:14)
[2024-04-21] MEDS: Metoprolol Tartrate 50 MG Tablet PO (10:14)
[2024-04-21] MEDS: Tamsulosin HCl 0.4 MG Capsule PO (10:14)
[2024-04-21] MEDS: APIXABAN 5 MG TABLET PO (10:14)
[2024-04-21] MEDS: Furosemide 20 MG Tablet PO (10:14)
--- NOTE | 2024-04-21 13:01 | PCM.DC.SUM ---
Providers Date of Admission: 04/17/24 Date of Discharge: 04/21/24 Primary Care Physician: DENISSE Rodriguez Reason For Visit: FENTANYL DETOX Diagnosis Discharge Diagnosis (1) Opioid dependence with current use: Status: Acute Code(s): F11.20 - Opioid dependence, uncomplicated (2) Bilateral hand pain: Status: Acute Code(s): M79.641 - Pain in right hand; M79.642 - Pain in left hand Plan 1. Substance use disorder with fentanyl, currently undergoing withdrawal syndrome-continue Subutex, addiction social security specialist has talked to the patient about outpatient follow-up #2 neuropathic hand pain-etiology unclear, patient will continue on gabapentin 3 times daily, he will need follow-up as an outpatient, I have elected to increase his gabapentin. #3 hyperlipidemia-patient is on atorvastatin #4 paroxysmal atrial fibrillation-patient is on Eliquis Total clinical time spent by myself addressing the patient's medical issues, reviewing all of his data, and collaborating with patient's care team: 35 minutes Medications at Discharge Home Medications albuterol sulfate 90 mcg/actuation aerosol inhaler 2 puff inhalation Q6H PRN PRN dyspnea 04/17/24 apixaban 5 mg tablet (Eliquis) 5 mg PO Q12.TCU 04/17/24 atorvastatin 40 mg tablet 40 mg PO DAILY 04/17/24 diclofenac sodium 1 % topical gel 2 ea topical 4X/DAY 04/17/24 dicyclomine 20 mg tablet 20 mg PO Q6H PRN 04/17/24 fluticasone furoate 100 mcg-vilanterol 25 mcg/dose inhalation powder (Breo Ellipta) 1 ea inhalation BID 04/17/24 furosemide 20 mg tablet 20 mg PO DAILY 04/17/24 metoprolol tartrate 50 mg tablet 50 mg PO BID 04/17/24 promethazine 25 mg tablet 25 mg PO Q6H PRN PRN nausea/vomiting 04/17/24 quetiapine 100 mg tablet 100 mg PO BID 04/17/24 tamsulosin 0.4 mg capsule 0.4 mg PO DAILY 04/17/24 gabapentin 600 mg tablet 600 mg PO TID #90 tabs 04/21/24 Hospital Course Operations None Procedures None Summary of Care Provided Minutes Spent on Discharge: 30 Hospital Course: This 64-year-old white male was seen in the emergency room at [facility] requesting services for fentanyl substance use disorder, patient denied any alcohol usage, patient stated he has used narcotics for approximately 25 years. Patient had been in a methadone program previously but stopped this program in December 2023. Patient also complained of chronic bilateral hand pain, he is due to see a specialist as an outpatient regarding this. Toxicology screen was positive for benzodiazepines only, labs revealed an elevated white blood cell count at 15.4, patient was admitted to [place] [id number] and orders were entered using the opiate detox order set. Patient was seen by addiction social security specialist. Patient was placed on Neurontin for his neuropathic hand pain which seemed to help. On 04/21/2024, patient was seen and examined: On examination he appeared in good health and spirits. Vital signs as documented. Skin warm and dry and without overt rashes. Neck without JVD, neck was supple, trachea midline, thyroid was normal. Lungs clear bilaterally, normal air movement was noted. Heart exam notable for regular rhythm, normal sounds and absence of murmurs, rubs or gallops. Abdomen unremarkable and without evidence of organomegaly, masses, or abdominal aortic enlargement. Bowel sounds are present, abdomen is not distended. Extremities nonedematous, no cyanosis was noted, no clubbing was noted. Patient has a previous below the knee amputation on the left. Neuro: Cranial nerves II through XII are grossly intact, no focal motor deficits were noted, sensation to light touch and pinprick intact, motor exam 5/5 throughout. Psych: Patient is alert and oriented x3, he does not appear anxious or depressed, he does not appear agitated. On 04/21/24, patient was discharged home in stable condition. Weight / BMI Weight Weight: 99.2 kg Body Mass Index (BMI) 29.6 ABG / Lab / Microbiology Data 04/18/24 06:22 04/18/24 06:22 D/C Instructions Discharge Diet: No restrictions Weight Bearing Status: Full weight bearing Meaningful Use Info Meaningful Use Meaningful Use Diagnoses (Choose all that apply): None applicable Ischemic Stroke Statin Dosing Therapy Reference: STATIN DOSE THERAPY REFERENCE: * Patients > 75 years receive moderate or high dose statin therapy. * Patients 75 years or YOUNGER should receive HIGH intensity statin dose unless contraindicated. You will be required to document reason for non-treatment if statin daily dose does not meet guidelines. HIGH DOSE STATIN THERAPY DAILY Atorvastatin > than or = to 40 mg Rosuvastatin > than or = to 20 mg Amlodipine + Atorvastatin > than or = to 2.5/40 mg Ezetimibe + Simvastatin 10/80 mg Simvastatin 80mg Discharge Plan Admission Admit Date/Time: 04/17/24 18:33 Primary Reason for Your Visit: Substance use disorder with fentanyl, neuropathy Attending Provider: Nikolai Boyd Primary Care Provider: Abena Molina Consulting Providers: Liz Corona Instructions Additional Instructions / Restrictions: Follow-up with outpatient detox services Discharge Orders/Prescriptions Prescriptions: New gabapentin 600 mg Tablet 600 mg PO TID Qty: 90 1RF Continued atorvastatin 40 mg tablet 40 mg PO DAILY albuterol sulfate 90 mcg/actuation HFA aerosol inhaler 2 puff inhalation Q6H PRN PRN (Reason: dyspnea) Eliquis 5 mg tablet 5 mg PO Q12.TCU tamsulosin 0.4 mg capsule 0.4 mg PO DAILY dicyclomine 20 mg tablet 20 mg PO Q6H PRN metoprolol tartrate 50 mg tablet 50 mg PO BID furosemide 20 mg tablet 20 mg PO DAILY fluticasone furoate-vilanterol [Breo Ellipta] 100-25 mcg/dose blister with device 1 ea inhalation BID quetiapine 100 mg tablet 100 mg PO BID promethazine 25 mg tablet 25 mg PO Q6H PRN PRN (Reason: nausea/vomiting) diclofenac sodium 1 % gel 2 ea topical 4X/DAY Discontinued gabapentin 100 mg capsule 100 mg PO TID Referrals / Follow Up: NOT,DEFINED [Non-Staff] - Abena Molina, CASH CHECKER-C [Primary Care Provider] - Disposition Disposition (needs filled in before D/C Order can be placed): Home, Self Care Charges/Coding Visit Charges Inpatient E&M: 17431 Disch Hosp
[2024-04-21 13:52] VITALS: BP 124/73; PULSE 103; RESP 18; TEMP 37; O2SAT 97
== END 2024-04-21 15:20 | disposition home or self-care (01) | DRG 897 ==
LOC: ED 18:28 → MS3 18:45
PROVIDERS: Nurse Practitioner; Admitting Provider Internal Medicine; Emergency Provider Emergency Medicine; PCP Nurse Practitioner Family; Visit Provider Internal Medicine
DX: F11.23 Opioid dependence with withdrawal (principal); N13.8 Other obstructive and reflux uropathy; I50.32 Chronic diastolic (congestive) heart failure; I48.0 Paroxysmal atrial fibrillation; E78.5 Hyperlipidemia, unspecified; G62.9 Polyneuropathy, unspecified; J44.9 Chronic obstructive pulmonary disease, unspecified; I73.9 Peripheral vascular disease, unspecified; F17.210 Nicotine dependence, cigarettes, uncomplicated; M10.9 Gout, unspecified; M79.642 Pain in left hand; M79.641 Pain in right hand; Z79.01 Long term (current) use of anticoagulants; N40.1 Benign prostatic hyperplasia with lower urinary tract symptoms
CPT/HCPCS: 36415; 80048; 80053; 80307; 82077; 83735; 85025; 94640; 97802; 99285; 99406